=== PATIENT | female | born 1980 | race Caucasian/White ===

== ENCOUNTER 2019-01-27 13:03 | Emergency (ER) | payer MEDICAID ==
[2019-01-27] MEDS: ACETAMINOPHEN 325 MG TAB PO (14:50)
== END 2019-01-27 16:06 | disposition home or self-care (01) ==
LOC: FTE 13:03
DX: S01.81XA Laceration without foreign body of other part of head, initial encounter (principal); W01.0XXA Fall on same level from slipping, tripping and stumbling without subsequent striking against object, initial encounter; Y92.009 Unspecified place in unspecified non-institutional (private) residence as the place of occurrence of the external cause
CPT/HCPCS: 12011; 99282-25

== ENCOUNTER 2019-01-30 07:29 | Emergency (ER) | payer MEDICAID ==
[2019-01-30 08:08] LABS: ADD MAN DIFF? NO
[2019-01-30] MEDS: ONDANSETRON 4 MG INJ IV (08:10)
[2019-01-30] MEDS: morphine 2 MG INJ IV (08:10)
[2019-01-30] MEDS: MECLIZINE 12.5 MG TAB PO (08:10)
[2019-01-30 08:11] LABS: WHITE BLOOD COUNT 3.4 10^3/ul (4.8-10.8)
[2019-01-30 08:11] LABS: BASOPHILS % 0.6 % (0.0-2.0); EOSINOPHILS # 0.2 10^3/ul (0.0-0.5); HEMATOCRIT 37.8 % (37.0-47.0); HEMOGLOBIN 12.4 g/dl (12.0-16.0); LYMPHOCYTES # 1.2 10^3/ul (0.8-2.9); LYMPHOCYTES % 33.8 % (15.0-51.0); MEAN CORPUSCULAR HEMOGLOBIN 28.4 pg (29.0-33.0); MEAN CORPUSCULAR HGB CONC 32.8 g/dl (32.0-37.0); MEAN CORPUSCULAR VOLUME 86.7 fl (82.0-101.0); MEAN PLATELET VOLUME 9.9 fl (7.4-10.4); MONOCYTE # 0.3 10^3/ul (0.3-0.9); MONOCYTES % 9.3 % (0.0-11.0); NEUTROPHIL # 1.8 10^3/ul (1.6-7.5); PLATELET COUNT 328 10^3/UL (140-415); RED BLOOD COUNT 4.36 10^6/ul (4.20-5.40)
[2019-01-30 08:32] LABS: INR 0.94; PARTIAL THROMBOPLASTIN TIME 25.5 Sec (23.0-35.0); PROTIME 12.7 Sec (11.9-14.9)
[2019-01-30] MEDS: SOD CHLORIDE 0.9% 1,000 ML IV (08:37)
[2019-01-30 08:43] LABS: ALANINE AMINOTRANSFERASE 57 IU/L (13-69); ALBUMIN 4.4 g/dl (3.3-4.9); ALBUMIN/GLOBULIN RATIO 1.29; ALKALINE PHOSPHATASE 35 IU/L (42-121); ANION GAP 9 (5-13); ASPARTATE AMINO TRANSFERASE 92 IU/L (15-46); BILIRUBIN,INDIRECT 0.3 mg/dl (0-1.1); BILIRUBIN,TOTAL 0.3 mg/dl (0.2-1.3); BLOOD UREA NITROGEN 13 mg/dl (7-20); CALCIUM 9.4 mg/dl (8.4-10.2); CARBON DIOXIDE 23 mmol/L (21-31); CHLORIDE 109 mmol/L (97-110); CREATININE 0.65 mg/dl (0.44-1.00); Estimated GFR > 60 mL/min (>60); GLUCOSE 109 mg/dl (70-220); POTASSIUM 3.9 mmol/L (3.5-5.1); SODIUM 141 mmol/L (135-144); TOTAL PROTEIN 7.8 g/dl (6.1-8.1)
[2019-01-30 08:53] LABS: TROPONIN-I < 0.012 ng/ml (0.000-0.120)
[2019-01-30] MEDS: KETOROLAC 30 MG INJ IV (10:39)
== END 2019-01-30 10:53 | disposition home or self-care (01) ==
LOC: E/R 07:29
DX: S06.0X0A Concussion without loss of consciousness, initial encounter (principal); R42 Dizziness and giddiness; W01.0XXA Fall on same level from slipping, tripping and stumbling without subsequent striking against object, initial encounter; Y92.9 Unspecified place or not applicable
CPT/HCPCS: 36415; 70450; 80053; 81025; 84484; 85025; 85610; 85730; 93005; 96374; 96375; 99285-25